=== PATIENT | male | born 1935 | race Caucasian/White ===

== ENCOUNTER 2021-01-21 14:23 | Inpatient (IN) | payer MEDICARE, BC ==
[2021-01-21] MEDS ORDERED: Furosemide 40 MG/4 ML VIAL ONE (14:56)
[2021-01-21 15:10] LABS: #Basophils 0.1 10x3/uL (0.0-0.2); #Eosinphils 0.1 10x3/uL (0.0-0.5); #Monocytes 0.8 10x3/uL (0.0-1.1); #Neutrophils 5.3 10x3/uL (1.5-8.4); %Basophils 0.7 % (0.0-2.0); %Eosinophils 1.4 % (0.0-6.0); %Lymphocytes 14.4 % (18.0-47.0); %Monocytes 10.4 % (0.0-10.0); %Neutrophils 72.5 % (40.0-75.0); Hemoglobin 8.9 g/dL (13.5-17.5); Mean Corpuscular HGB CONC 29.3 g/dL (32.0-36.0); Mean Corpuscular Hemoglobin 22.4 pg (27.0-33.0); Mean Corpuscular Volume 76.6 fl (81.2-95.1); Mean Platelet Volume 10.9 fl (7.4-10.4); Platelet Count 155 10x3/uL (150-450); RBC Distribution Width 14.8 % (11.5-14.5); Red Blood Cell (RBC) Count 3.97 10x6/uL (4.32-5.72); White Blood Cell (WBC) Count 7.2 10x3/uL (3.5-10.5)
[2021-01-21 15:16] LABS: ALT (SGPT) 18 U/L (8-55); AST (SGOT) 21 U/L (5-34); Alkaline Phosphatase 96 U/L (40-110); Anion Gap 15 mmol/L (10-20); BUN (Urea Nitrogen) 53 mg/dL (8.4-25.7); Bilirubin, Total 0.4 mg/dL (0.2-1.2); Calc. Creatinine Clearance 0 mL/min (70-130); Calcium 8.4 mg/dL (7.8-10.44); Carbon Dioxide 26 mmol/L (23-31); Chloride 101 mmol/L (98-107); Globulin 2.7 g/dL (2.4-3.5); Glucose 187 mg/dL (83-110); Potassium 3.7 mmol/L (3.5-5.1); Protein, Total 6.7 g/dL (5.8-8.1); Sodium 138 mmol/L (136-145)
[2021-01-21 16:07] LABS: Platelet Morphology Comment Appears Adequate
[2021-01-21 16:09] LABS: Anisocytosis SLIGHT = 6-15 cells (100X) (0-5/hpf); Elliptocytes SLIGHT = 2-5 cells (100X) (0-1/hpf); Hypochromia SLIGHT = 6-15 cells (100X) (0-5/hpf); Macrocytosis SLIGHT = 6-15 cells (100X) (0-5/hpf); Microcytosis SLIGHT = 6-15 cells (100X) (0-5/hpf); Polychromasia SLIGHT = 2-3 cells (100X) (0-2/hpf); Target Cells SLIGHT = 2-5 cells (100X) (0-1/hpf)
[2021-01-21 18:01] LABS: Troponin I 0.019 ng/mL (< 0.028)
[2021-01-21] MEDS ORDERED: Dextrose 5% in Water 1,000 ML IV PRN (20:17)
[2021-01-21] MEDS ORDERED: Dextrose 50% Abboject 50 ML SYRINGE SLOW IVP PRN (20:17)
[2021-01-21] MEDS ORDERED: Guaifenesin DM 100-10/5 ML UDCUP PO PRN (20:18)
[2021-01-21] MEDS ORDERED: Zolpidem Tartrate 5 MG TAB PO PRN (20:18)
[2021-01-21] MEDS ORDERED: Senokot S 8.6-50 MG TAB PO PRN (20:18)
[2021-01-21] MEDS ORDERED: Calcium Carbonate 500 MG ChewTAB PO PRN (20:18)
[2021-01-21] MEDS ORDERED: Acetaminophen 325 MG TAB PO PRN (20:18)
[2021-01-21] MEDS ORDERED: Potassium Chloride 20 MEQ TAB PO SCH (20:30)
[2021-01-21 21:11] LABS: Troponin I 0.035 ng/mL (< 0.028)
[2021-01-21] MEDS: Apixaban 2.5 MG TAB PO SCH (21:36)
[2021-01-21] MEDS: Simvastatin 10 MG TAB PO SCH (21:36)
[2021-01-22 04:34] LABS: SARS-CoV-2 PCR by NAA Not Detected (NotDetected)
[2021-01-22 05:29] LABS: #Eosinphils 0.1 10x3/uL (0.0-0.5); #Monocytes 0.7 10x3/uL (0.0-1.1); #Neutrophils 4.8 10x3/uL (1.5-8.4); %Basophils 0.6 % (0.0-2.0); %Eosinophils 1.8 % (0.0-6.0); %Lymphocytes 13.1 % (18.0-47.0); %Neutrophils 73.9 % (40.0-75.0); Hemoglobin 8.4 g/dL (13.5-17.5); Mean Corpuscular HGB CONC 29.6 g/dL (32.0-36.0); Mean Corpuscular Hemoglobin 22.5 pg (27.0-33.0); Mean Corpuscular Volume 75.9 fl (81.2-95.1); Mean Platelet Volume 11.3 fl (7.4-10.4); Platelet Count 141 10x3/uL (150-450); RBC Distribution Width 15.1 % (11.5-14.5); Red Blood Cell (RBC) Count 3.74 10x6/uL (4.32-5.72); White Blood Cell (WBC) Count 6.5 10x3/uL (3.5-10.5)
[2021-01-22 05:41] LABS: Anion Gap 14 mmol/L (10-20); BUN (Urea Nitrogen) 47 mg/dL (8.4-25.7); Calc. Creatinine Clearance 28 mL/min (70-130); Calcium 8.4 mg/dL (7.8-10.44); Carbon Dioxide 27 mmol/L (23-31); Chloride 105 mmol/L (98-107); Iron 15 ug/dL (65-175); Iron Binding Capacity, Total 313 mcg/dL (261-462); Potassium 3.6 mmol/L (3.5-5.1); Sodium 142 mmol/L (136-145)
[2021-01-22 05:44] LABS: Ferritin 18.81 ng/mL (22-322); Thyroid Stimulating Hormone 0.7379 uIU/mL (0.35-4.94)
[2021-01-22 05:51] LABS: Glucose 50 mg/dL (83-110)
[2021-01-22 05:58] LABS: CKMB 1.1 ng/mL (0-6.6)
[2021-01-22] MEDS: Furosemide 40 MG/4 ML VIAL SLOW IVP SCH ×2 (06:27→14:25)
[2021-01-22] MEDS ORDERED: NPH, Human Insulin Isophane 300 UNIT/3 ML VIAL SQ SCH (09:00)
[2021-01-22] MEDS ORDERED: Metoprolol Tartrate 25 MG TAB PO SCH (09:00)
[2021-01-22] MEDS ORDERED: Glimepiride 2 MG TAB PO SCH (09:00)
[2021-01-22] MEDS: Ferrous Sulfate 325 MG TAB PO SCH (09:36)
[2021-01-22] MEDS: Apixaban 2.5 MG TAB PO SCH ×2 (09:36→20:15)
[2021-01-22] MEDS: Alogliptin 6.25 MG TAB PO SCH (09:36)
[2021-01-22] MEDS: Dronedarone HCl 400 MG TAB PO SCH ×2 (09:37→18:54)
[2021-01-22] MEDS: NPH, Human Insulin Isophane 300 UNIT/3 ML VIAL SQ SCH (09:41)
[2021-01-22] MEDS: HumaLOG 300 UNITS/3 ML VIAL SC PRN ×3 (12:06→23:58)
[2021-01-22] MEDS: Simvastatin 10 MG TAB PO SCH (20:15)
[2021-01-23] MEDS ORDERED: Potassium Chloride 20 MEQ TAB PO SCH (00:15)
[2021-01-23] MEDS: Furosemide 40 MG/4 ML VIAL SLOW IVP SCH ×2 (05:46→13:24)
[2021-01-23] MEDS: HumaLOG 300 UNITS/3 ML VIAL SC PRN ×3 (05:49→19:25)
[2021-01-23] MEDS: Dronedarone HCl 400 MG TAB PO SCH ×2 (07:51→18:05)
[2021-01-23] MEDS: Alogliptin 6.25 MG TAB PO SCH (07:52)
[2021-01-23] MEDS: Ferrous Sulfate 325 MG TAB PO SCH (07:52)
[2021-01-23] MEDS: Apixaban 2.5 MG TAB PO SCH (07:53)
[2021-01-23] MEDS: NPH, Human Insulin Isophane 300 UNIT/3 ML VIAL SQ SCH (07:57)
[2021-01-23 11:28] LABS: #Basophils 0.1 10x3/uL (0.0-0.2); #Eosinphils 0.1 10x3/uL (0.0-0.5); #Monocytes 0.7 10x3/uL (0.0-1.1); #Neutrophils 5.1 10x3/uL (1.5-8.4); %Basophils 0.9 % (0.0-2.0); %Eosinophils 1.5 % (0.0-6.0); %Lymphocytes 12.6 % (18.0-47.0); %Monocytes 10.6 % (0.0-10.0); Hemoglobin 8.8 g/dL (13.5-17.5); Mean Corpuscular HGB CONC 28.4 g/dL (32.0-36.0); Mean Corpuscular Hemoglobin 21.8 pg (27.0-33.0); Mean Corpuscular Volume 76.7 fl (81.2-95.1); Mean Platelet Volume 10.3 fl (7.4-10.4); Platelet Count 131 10x3/uL (150-450); RBC Distribution Width 15.1 % (11.5-14.5); Red Blood Cell (RBC) Count 4.04 10x6/uL (4.32-5.72); White Blood Cell (WBC) Count 6.9 10x3/uL (3.5-10.5)
[2021-01-23 11:32] LABS: Anion Gap 15 mmol/L (10-20); BUN (Urea Nitrogen) 47 mg/dL (8.4-25.7); Calc. Creatinine Clearance 28 mL/min (70-130); Calcium 8.6 mg/dL (7.8-10.44); Carbon Dioxide 27 mmol/L (23-31); Chloride 101 mmol/L (98-107); Glucose 182 mg/dL (83-110); Potassium 4.7 mmol/L (3.5-5.1); Sodium 138 mmol/L (136-145)
[2021-01-23] MEDS ORDERED: Communication Order-Pharmacy FS SCH (12:00)
[2021-01-23] MEDS ORDERED: Ascorbic Acid 500 mg Chewable Tablet PO SCH (12:00)
[2021-01-23 12:37] LABS: Hypochromia SLIGHT = 6-15 cells (100X) (0-5/hpf); Polychromasia SLIGHT = 2-3 cells (100X) (0-2/hpf)
[2021-01-23 12:38] LABS: Anisocytosis SLIGHT = 6-15 cells (100X) (0-5/hpf); Microcytosis SLIGHT = 6-15 cells (100X) (0-5/hpf)
[2021-01-23 12:39] LABS: Poikilocytosis SLIGHT = 6-15 cells (100X) (0-5/hpf)
[2021-01-23 12:40] LABS: Platelet Morphology Comment Appears Decreased
[2021-01-23] MEDS ORDERED: Epoetin (ESRD) 10,000 UNITS/ML VIAL SC SCH (16:00)
[2021-01-23] MEDS ORDERED: EPOETIN ALFA-EPBX (ESRD) 10,000 UNIT/ML VIAL SC SCH (16:30)
[2021-01-23] MEDS: Simvastatin 10 MG TAB PO SCH (20:49)
[2021-01-23] MEDS: Acetylcysteine 800 MG/4 ML VIAL PO SCH (20:59)
[2021-01-24] MEDS: HumaLOG 300 UNITS/3 ML VIAL SC PRN ×5 (00:18→20:29)
[2021-01-24] MEDS: Furosemide 40 MG/4 ML VIAL SLOW IVP SCH ×2 (05:44→15:13)
[2021-01-24] MEDS ORDERED: Sodium Chloride 0.9% 1,000 ML IV SCH (06:00)
[2021-01-24] MEDS: Dronedarone HCl 400 MG TAB PO SCH ×2 (08:15→17:28)
[2021-01-24] MEDS: Ascorbic Acid 500 mg Chewable Tablet PO SCH (08:15)
[2021-01-24] MEDS: Ferrous Sulfate 325 MG TAB PO SCH (08:15)
[2021-01-24] MEDS: Acetylcysteine 800 MG/4 ML VIAL PO SCH (08:15)
[2021-01-24] MEDS: Docusate 100 MG CAP PO SCH ×2 (09:39→20:25)
[2021-01-24] MEDS: Polyethylene Glycol 3350 17 GM Packet PO SCH (09:39)
[2021-01-24] MEDS: Simvastatin 10 MG TAB PO SCH (20:25)
[2021-01-24] MEDS: Apixaban 2.5 MG TAB PO SCH (20:25)
[2021-01-25 05:44] LABS: #Eosinphils 0.1 10x3/uL (0.0-0.5); #Monocytes 0.7 10x3/uL (0.0-1.1); #Neutrophils 5.3 10x3/uL (1.5-8.4); %Basophils 0.4 % (0.0-2.0); %Eosinophils 1.3 % (0.0-6.0); %Lymphocytes 12.2 % (18.0-47.0); %Monocytes 10.1 % (0.0-10.0); %Neutrophils 75.7 % (40.0-75.0); Hemoglobin 8.5 g/dL (13.5-17.5); Mean Corpuscular HGB CONC 29.1 g/dL (32.0-36.0); Mean Corpuscular Hemoglobin 22.3 pg (27.0-33.0); Mean Corpuscular Volume 76.4 fl (81.2-95.1); Mean Platelet Volume 11.1 fl (7.4-10.4); Platelet Count 135 10x3/uL (150-450); RBC Distribution Width 15.3 % (11.5-14.5); Red Blood Cell (RBC) Count 3.82 10x6/uL (4.32-5.72)
[2021-01-25] MEDS: Furosemide 40 MG/4 ML VIAL SLOW IVP SCH ×2 (05:48→13:57)
[2021-01-25] MEDS: HumaLOG 300 UNITS/3 ML VIAL SC PRN ×3 (05:52→15:51)
[2021-01-25 05:55] LABS: Anion Gap 15 mmol/L (10-20); BUN (Urea Nitrogen) 49 mg/dL (8.4-25.7); Calc. Creatinine Clearance 29 mL/min (70-130); Calcium 8.7 mg/dL (7.8-10.44); Carbon Dioxide 27 mmol/L (23-31); Chloride 100 mmol/L (98-107); Glucose 170 mg/dL (83-110); Potassium 4.1 mmol/L (3.5-5.1); Sodium 138 mmol/L (136-145)
[2021-01-25] MEDS: Apixaban 2.5 MG TAB PO SCH (07:51)
[2021-01-25] MEDS: Docusate 100 MG CAP PO SCH ×2 (08:28→20:36)
[2021-01-25] MEDS: Dronedarone HCl 400 MG TAB PO SCH ×2 (08:30→17:01)
[2021-01-25] MEDS: Ascorbic Acid 500 mg Chewable Tablet PO SCH (08:31)
[2021-01-25] MEDS: Ferrous Sulfate 325 MG TAB PO SCH (08:31)
[2021-01-25] MEDS: Alogliptin 6.25 MG TAB PO SCH (08:32)
[2021-01-25] MEDS: Polyethylene Glycol 3350 17 GM Packet PO SCH (08:35)
[2021-01-25] MEDS ORDERED: NPH, Human Insulin Isophane 300 UNIT/3 ML VIAL SQ SCH (09:00)
[2021-01-25] MEDS ORDERED: Communication Order-Pharmacy FS SCH (18:30)
[2021-01-25] MEDS: Simvastatin 10 MG TAB PO SCH (20:36)
[2021-01-26 05:55] LABS: Anion Gap 15 mmol/L (10-20); BUN (Urea Nitrogen) 49 mg/dL (8.4-25.7); Calc. Creatinine Clearance 26 mL/min (70-130); Calcium 8.8 mg/dL (7.8-10.44); Carbon Dioxide 28 mmol/L (23-31); Chloride 100 mmol/L (98-107); Glucose 229 mg/dL (83-110); Magnesium 2.3 mg/dL (1.6-2.6); Sodium 139 mmol/L (136-145)
[2021-01-26] MEDS: Dronedarone HCl 400 MG TAB PO SCH ×2 (06:33→17:12)
[2021-01-26] MEDS: Alogliptin 6.25 MG TAB PO SCH (06:33)
[2021-01-26] MEDS: Ascorbic Acid 500 mg Chewable Tablet PO SCH (06:33)
[2021-01-26] MEDS: Ferrous Sulfate 325 MG TAB PO SCH (06:33)
[2021-01-26] MEDS: Sodium Chloride 0.9% 1,000 ML IV SCH (06:34)
[2021-01-26] MEDS ORDERED: Aspirin 81 mg Enteric Coated Tablet PO SCH (07:00)
[2021-01-26] MEDS: Furosemide 40 MG/4 ML VIAL SLOW IVP SCH ×2 (07:26→14:06)
[2021-01-26] MEDS: Polyethylene Glycol 3350 17 GM Packet PO SCH (07:39)
[2021-01-26] MEDS: Aspirin 81 mg Enteric Coated Tablet PO SCH (08:06)
[2021-01-26] MEDS: Docusate 100 MG CAP PO SCH ×2 (09:21→21:10)
[2021-01-26] MEDS: HumaLOG 300 UNITS/3 ML VIAL SC PRN ×2 (13:06→16:16)
[2021-01-26] MEDS ORDERED: Dronedarone HCl 400 MG TAB PO SCH ×2 (18:15→22:00)
[2021-01-26] MEDS: Simvastatin 10 MG TAB PO SCH (21:10)
[2021-01-26] MEDS: Apixaban 2.5 MG TAB PO SCH (21:10)
[2021-01-27] MEDS: HumaLOG 300 UNITS/3 ML VIAL SC PRN ×5 (00:54→21:12)
[2021-01-27] MEDS: Furosemide 40 MG/4 ML VIAL SLOW IVP SCH ×2 (06:33→14:49)
[2021-01-27] MEDS: Sodium Chloride 0.9% 1,000 ML IV SCH (07:43)
[2021-01-27] MEDS: Docusate 100 MG CAP PO SCH ×2 (08:25→21:06)
[2021-01-27] MEDS: Dronedarone HCl 400 MG TAB PO SCH ×2 (08:25→17:33)
[2021-01-27] MEDS: Alogliptin 6.25 MG TAB PO SCH (08:25)
[2021-01-27] MEDS: Apixaban 2.5 MG TAB PO SCH ×2 (08:25→21:06)
[2021-01-27] MEDS: Ferrous Sulfate 325 MG TAB PO SCH (08:25)
[2021-01-27] MEDS: Ascorbic Acid 500 mg Chewable Tablet PO SCH (08:25)
[2021-01-27] MEDS: Polyethylene Glycol 3350 17 GM Packet PO SCH (08:28)
[2021-01-27] MEDS ORDERED: NPH, Human Insulin Isophane 300 UNIT/3 ML VIAL SQ SCH (09:00)
[2021-01-27] MEDS: Simvastatin 10 MG TAB PO SCH (21:06)
[2021-01-28 05:47] VITALS: BMI 23.9
[2021-01-28] MEDS: Sodium Chloride 0.9% 1,000 ML IV SCH (06:10)
[2021-01-28] MEDS: Furosemide 40 MG/4 ML VIAL SLOW IVP SCH ×2 (06:12→16:03)
[2021-01-28] MEDS: Dronedarone HCl 400 MG TAB PO SCH ×2 (06:14→18:58)
[2021-01-28] MEDS: Apixaban 2.5 MG TAB PO SCH (06:14)
[2021-01-28] MEDS ORDERED: NPH, Human Insulin Isophane 300 UNIT/3 ML VIAL SC SCH (08:15)
[2021-01-28] MEDS ORDERED: Midazolam HCl 5 mg/5 ml Vial ONE (08:46)
[2021-01-28] MEDS ORDERED: Fentanyl 250 MCG/5 ML VIAL ONE (08:47)
[2021-01-28] MEDS: Ferrous Sulfate 325 MG TAB PO SCH (09:13)
[2021-01-28] MEDS: Alogliptin 6.25 MG TAB PO SCH (09:14)
[2021-01-28] MEDS: Ascorbic Acid 500 mg Chewable Tablet PO SCH (09:14)
[2021-01-28] MEDS: Polyethylene Glycol 3350 17 GM Packet PO SCH (09:14)
[2021-01-28] MEDS: Docusate 100 MG CAP PO SCH (09:14)
[2021-01-28] MEDS: Aspirin 81 mg Enteric Coated Tablet PO SCH (09:14)
[2021-01-28] MEDS ORDERED: Adenosine 6 MG/2 ML VIAL ONE ×3 (09:23→09:28)
[2021-01-28 11:55] LABS: Anion Gap 12 mmol/L (10-20); BUN (Urea Nitrogen) 48 mg/dL (8.4-25.7); Calc. Creatinine Clearance 27 mL/min (70-130); Calcium 8.7 mg/dL (7.8-10.44); Carbon Dioxide 29 mmol/L (23-31); Chloride 102 mmol/L (98-107); Glucose 197 mg/dL (83-110); Potassium 4.3 mmol/L (3.5-5.1); Sodium 139 mmol/L (136-145)
[2021-01-28 13:18] VITALS: BP 113/58; TEMP 97.7
[2021-01-29] MEDS ORDERED: NPH, Human Insulin Isophane 300 UNIT/3 ML VIAL SC SCH (09:00)
== END 2021-01-28 17:08 | disposition home health service (06) | DRG 291 ==
LOC: CSHERS 14:23 → OBSVTOIN 17:37 → CSHTELE 17:37
PROVIDERS: ADMIT Internal Medicine; ATTEND Internal Medicine
PROC: 5A2204Z Restoration of Cardiac Rhythm, Single (ICD-10-PCS; principal; 2021-01-28)
PROC: B24BZZ4 Ultrasonography of Heart with Aorta, Transesophageal (ICD-10-PCS; 2021-01-28)
DX: I13.0 Hypertensive heart and chronic kidney disease with heart failure and stage 1 through stage 4 chronic kidney disease, or unspecified chronic kidney disease (principal); I50.43 Acute on chronic combined systolic (congestive) and diastolic (congestive) heart failure; N18.4 Chronic kidney disease, stage 4 (severe); I48.92 Unspecified atrial flutter; E11.22 Type 2 diabetes mellitus with diabetic chronic kidney disease; Z66 Do not resuscitate; Z20.822 Contact with and (suspected) exposure to COVID-19; E11.65 Type 2 diabetes mellitus with hyperglycemia; E78.5 Hyperlipidemia, unspecified; I25.10 Atherosclerotic heart disease of native coronary artery without angina pectoris; D63.8 Anemia in other chronic diseases classified elsewhere; M19.90 Unspecified osteoarthritis, unspecified site; I48.0 Paroxysmal atrial fibrillation; R53.81 Other malaise; D50.9 Iron deficiency anemia, unspecified; I49.5 Sick sinus syndrome; Z79.01 Long term (current) use of anticoagulants; Z79.82 Long term (current) use of aspirin; Z95.1 Presence of aortocoronary bypass graft; Z79.4 Long term (current) use of insulin; Z98.41 Cataract extraction status, right eye; Z87.891 Personal history of nicotine dependence; Z79.899 Other long term (current) drug therapy
CPT/HCPCS: 36415; 36416; 71045; 80048; 80053; 82553; 82607; 82728; 82746; 83540; 83550; 83735; 83880; 84443; 84484; 85025; 87635; 92960; 93005; 93010; 93306; 93312; 96374; 99152; 99153; G0378; J0153; J1815; J1940; J2250; J3010; J3475; J7050; Q5105; U0003; U0005

== ENCOUNTER 2021-02-06 22:35 | Inpatient (IN) | payer MEDICARE, BC ==
[2021-02-06] MEDS ORDERED: Dextrose 50% Abboject 50 ML SYRINGE SLOW IVP PRN (22:41)
[2021-02-06] MEDS ORDERED: Senokot S 8.6-50 MG TAB PO PRN (22:41)
[2021-02-06] MEDS ORDERED: Acetaminophen 325 MG TAB PO PRN (22:41)
[2021-02-06] MEDS ORDERED: Dextrose 5% in Water 1,000 ML IV PRN (22:41)
[2021-02-06] MEDS ORDERED: Calcium Carbonate 500 MG ChewTAB PO PRN (22:41)
[2021-02-06 22:45] VITALS: BMI 24.0
[2021-02-06] MEDS ORDERED: Apixaban 2.5 MG TAB PO SCH (23:00)
[2021-02-07 00:04] LABS: CKMB 1.3 ng/mL (0-6.6)
[2021-02-07] MEDS: Furosemide 20 MG/2 ML VIAL SLOW IVP SCH ×2 (05:45→14:12)
[2021-02-07] MEDS ORDERED: Furosemide 40 MG/4 ML VIAL SLOW IVP SCH (06:00)
[2021-02-07 07:21] LABS: #Eosinphils 0.1 10x3/uL (0.0-0.5); #Monocytes 0.8 10x3/uL (0.0-1.1); #Neutrophils 3.5 10x3/uL (1.5-8.4); %Basophils 0.4 % (0.0-2.0); %Eosinophils 1.4 % (0.0-6.0); %Lymphocytes 10.3 % (18.0-47.0); %Monocytes 15.5 % (0.0-10.0); %Neutrophils 72.2 % (40.0-75.0); Mean Corpuscular Hemoglobin 22.2 pg (27.0-33.0); Mean Corpuscular Volume 79.3 fl (81.2-95.1); Mean Platelet Volume 10.6 fl (7.4-10.4); Platelet Count 156 10x3/uL (150-450); RBC Distribution Width 18.6 % (11.5-14.5); Red Blood Cell (RBC) Count 4.05 10x6/uL (4.32-5.72); White Blood Cell (WBC) Count 4.8 10x3/uL (3.5-10.5)
[2021-02-07 07:46] LABS: Anion Gap 13 mmol/L (10-20); BUN (Urea Nitrogen) 58 mg/dL (8.4-25.7); CRP (Inflammatory) 2.15 mg/dL (= or < 0.5); Calc. Creatinine Clearance 25 mL/min (70-130); Calcium 8.5 mg/dL (7.8-10.44); Carbon Dioxide 27 mmol/L (23-31); Chloride 104 mmol/L (98-107); Glucose 236 mg/dL (83-110); Magnesium 2.4 mg/dL (1.6-2.6); Potassium 4.6 mmol/L (3.5-5.1); Sodium 139 mmol/L (136-145)
[2021-02-07 07:57] LABS: CKMB 0.9 ng/mL (0-6.6)
[2021-02-07] MEDS ORDERED: FLU VACC QS2020-21(65YR UP)/PF 240 MCG/0.7 ML SYRINGE IM ONE (09:00)
[2021-02-07 09:10] LABS: Anisocytosis SLIGHT = 6-15 cells (100X) (0-5/hpf); Elliptocytes SLIGHT = 2-5 cells (100X) (0-1/hpf); Polychromasia SLIGHT = 2-3 cells (100X) (0-2/hpf)
[2021-02-07 09:11] LABS: Hypochromia MODERATE=16-30 cells (100X) (0-5/hpf); Platelet Morphology Comment Appears Adequate
[2021-02-07] MEDS: Ferrous Sulfate 325 MG TAB PO SCH (09:18)
[2021-02-07] MEDS: Apixaban 2.5 MG TAB PO SCH ×2 (09:23→20:24)
[2021-02-07] MEDS: Alogliptin 6.25 MG TAB PO SCH (09:23)
[2021-02-07] MEDS: NPH, Human Insulin Isophane 300 UNIT/3 ML VIAL SQ SCH (09:24)
[2021-02-07] MEDS: Dronedarone HCl 400 MG TAB PO SCH ×2 (09:24→20:24)
[2021-02-07] MEDS: Cholecalciferol 1,000 UNITS (25 MCG) TAB PO SCH (09:24)
[2021-02-07] MEDS: Ascorbic Acid 500 mg Chewable Tablet PO SCH (09:24)
[2021-02-07] MEDS: Zinc Gluconate 50 MG TAB PO SCH (09:24)
[2021-02-07] MEDS: Magnesium Oxide 400 MG TAB PO SCH (09:24)
[2021-02-07] MEDS: Glimepiride 2 MG TAB PO SCH (09:27)
[2021-02-07 11:14] LABS: Ferritin 36.64 ng/mL (22-322); Thyroid Stimulating Hormone 0.7125 uIU/mL (0.35-4.94)
[2021-02-07] MEDS: Simvastatin 10 MG TAB PO SCH (16:31)
[2021-02-07] MEDS: HumaLOG 300 UNITS/3 ML VIAL SC PRN (18:03)
[2021-02-08] MEDS: Zolpidem Tartrate 5 MG TAB PO PRN (00:14)
[2021-02-08 07:06] LABS: #Eosinphils 0.1 10x3/uL (0.0-0.5); #Monocytes 0.9 10x3/uL (0.0-1.1); #Neutrophils 3.4 10x3/uL (1.5-8.4); %Basophils 0.4 % (0.0-2.0); %Eosinophils 1.2 % (0.0-6.0); %Lymphocytes 13.1 % (18.0-47.0); %Monocytes 18.2 % (0.0-10.0); %Neutrophils 66.7 % (40.0-75.0); Hemoglobin 8.8 g/dL (13.5-17.5); Mean Corpuscular HGB CONC 28.3 g/dL (32.0-36.0); Mean Corpuscular Hemoglobin 22.5 pg (27.0-33.0); Mean Corpuscular Volume 79.5 fl (81.2-95.1); Mean Platelet Volume 10.4 fl (7.4-10.4); Platelet Count 134 10x3/uL (150-450); RBC Distribution Width 18.4 % (11.5-14.5); Red Blood Cell (RBC) Count 3.91 10x6/uL (4.32-5.72); White Blood Cell (WBC) Count 5.1 10x3/uL (3.5-10.5)
[2021-02-08 07:23] LABS: Anion Gap 14 mmol/L (10-20); BUN (Urea Nitrogen) 54 mg/dL (8.4-25.7); Calc. Creatinine Clearance 26 mL/min (70-130); Calcium 8.2 mg/dL (7.8-10.44); Carbon Dioxide 25 mmol/L (23-31); Chloride 103 mmol/L (98-107); Glucose 100 mg/dL (83-110); Magnesium 2.4 mg/dL (1.6-2.6); Potassium 4.3 mmol/L (3.5-5.1); Sodium 138 mmol/L (136-145)
[2021-02-08] MEDS: Furosemide 20 MG/2 ML VIAL SLOW IVP SCH (09:42)
[2021-02-08] MEDS: Alogliptin 6.25 MG TAB PO SCH (09:42)
[2021-02-08] MEDS: Dronedarone HCl 400 MG TAB PO SCH ×2 (09:42→21:01)
[2021-02-08] MEDS: Apixaban 2.5 MG TAB PO SCH ×2 (09:42→21:01)
[2021-02-08] MEDS: Dexamethasone 20 MG/5 ML VIAL SLOW IVP SCH (09:42)
[2021-02-08] MEDS: Ascorbic Acid 500 mg Chewable Tablet PO SCH (09:42)
[2021-02-08] MEDS: Magnesium Oxide 400 MG TAB PO SCH (09:42)
[2021-02-08] MEDS: Ferrous Sulfate 325 MG TAB PO SCH (09:42)
[2021-02-08] MEDS: Glimepiride 2 MG TAB PO SCH (09:42)
[2021-02-08] MEDS: Cholecalciferol 1,000 UNITS (25 MCG) TAB PO SCH (09:42)
[2021-02-08] MEDS: NPH, Human Insulin Isophane 300 UNIT/3 ML VIAL SQ SCH (09:43)
[2021-02-08] MEDS: Zinc Gluconate 50 MG TAB PO SCH (09:43)
[2021-02-08] MEDS ORDERED: Furosemide 40 MG/4 ML VIAL SLOW IVP SCH (14:00)
[2021-02-08] MEDS: Furosemide 40 MG/4 ML VIAL SLOW IVP SCH (15:38)
[2021-02-08] MEDS: Simvastatin 10 MG TAB PO SCH (16:22)
[2021-02-08] MEDS: Guaifenesin DM 100-10/5 ML UDCUP PO PRN (17:05)
[2021-02-08] MEDS: HumaLOG 300 UNITS/3 ML VIAL SC PRN (17:20)
[2021-02-09] MEDS: HumaLOG 300 UNITS/3 ML VIAL SC PRN ×3 (01:02→23:37)
[2021-02-09] MEDS: Zolpidem Tartrate 5 MG TAB PO PRN ×2 (01:05→23:37)
[2021-02-09 05:57] LABS: Anion Gap 15 mmol/L (10-20); BUN (Urea Nitrogen) 53 mg/dL (8.4-25.7); Calc. Creatinine Clearance 27 mL/min (70-130); Calcium 8.3 mg/dL (7.8-10.44); Carbon Dioxide 24 mmol/L (23-31); Chloride 103 mmol/L (98-107); Glucose 264 mg/dL (83-110); Magnesium 2.4 mg/dL (1.6-2.6); Potassium 4.6 mmol/L (3.5-5.1); Sodium 137 mmol/L (136-145)
[2021-02-09 06:00] LABS: #Monocytes 0.3 10x3/uL (0.0-1.1); #Neutrophils 2.3 10x3/uL (1.5-8.4); %Lymphocytes 14.1 % (18.0-47.0); %Monocytes 11.2 % (0.0-10.0); %Neutrophils 74.4 % (40.0-75.0); Hemoglobin 8.8 g/dL (13.5-17.5); Mean Corpuscular HGB CONC 28.2 g/dL (32.0-36.0); Mean Corpuscular Hemoglobin 22.3 pg (27.0-33.0); Mean Platelet Volume 11.1 fl (7.4-10.4); Platelet Count 135 10x3/uL (150-450); RBC Distribution Width 18.4 % (11.5-14.5); Red Blood Cell (RBC) Count 3.95 10x6/uL (4.32-5.72)
[2021-02-09] MEDS: Furosemide 40 MG/4 ML VIAL SLOW IVP SCH ×2 (06:21→13:17)
[2021-02-09] MEDS: Cholecalciferol 1,000 UNITS (25 MCG) TAB PO SCH (08:27)
[2021-02-09] MEDS: Glimepiride 2 MG TAB PO SCH (08:27)
[2021-02-09] MEDS: Ferrous Sulfate 325 MG TAB PO SCH (08:27)
[2021-02-09] MEDS: Alogliptin 6.25 MG TAB PO SCH (08:27)
[2021-02-09] MEDS: Ascorbic Acid 500 mg Chewable Tablet PO SCH (08:27)
[2021-02-09] MEDS: Dexamethasone 20 MG/5 ML VIAL SLOW IVP SCH (08:27)
[2021-02-09] MEDS: Zinc Gluconate 50 MG TAB PO SCH (08:28)
[2021-02-09] MEDS: Apixaban 2.5 MG TAB PO SCH ×2 (08:28→20:01)
[2021-02-09] MEDS: Magnesium Oxide 400 MG TAB PO SCH (08:28)
[2021-02-09] MEDS: Dronedarone HCl 400 MG TAB PO SCH ×2 (08:28→20:01)
[2021-02-09] MEDS: NPH, Human Insulin Isophane 300 UNIT/3 ML VIAL SQ SCH (08:28)
[2021-02-09] MEDS ORDERED: Aspirin 81 mg Enteric Coated Tablet PO SCH (09:00)
[2021-02-09] MEDS: Simvastatin 10 MG TAB PO SCH (16:12)
[2021-02-09] MEDS: Guaifenesin DM 100-10/5 ML UDCUP PO PRN (20:01)
[2021-02-10] MEDS: Furosemide 40 MG/4 ML VIAL SLOW IVP SCH ×2 (04:38→12:40)
[2021-02-10] MEDS: HumaLOG 300 UNITS/3 ML VIAL SC PRN (04:38)
[2021-02-10 04:49] LABS: #Monocytes 0.5 10x3/uL (0.0-1.1); #Neutrophils 5.6 10x3/uL (1.5-8.4); %Lymphocytes 6.5 % (18.0-47.0); %Monocytes 7.8 % (0.0-10.0); %Neutrophils 85.2 % (40.0-75.0); Hemoglobin 9.5 g/dL (13.5-17.5); Mean Corpuscular HGB CONC 28.7 g/dL (32.0-36.0); Mean Corpuscular Hemoglobin 22.6 pg (27.0-33.0); Mean Corpuscular Volume 78.8 fl (81.2-95.1); Mean Platelet Volume 10.5 fl (7.4-10.4); Platelet Count 138 10x3/uL (150-450); RBC Distribution Width 18.6 % (11.5-14.5); White Blood Cell (WBC) Count 6.5 10x3/uL (3.5-10.5)
[2021-02-10 04:51] LABS: Anion Gap 15 mmol/L (10-20); BUN (Urea Nitrogen) 59 mg/dL (8.4-25.7); Calc. Creatinine Clearance 26 mL/min (70-130); Calcium 8.2 mg/dL (7.8-10.44); Carbon Dioxide 24 mmol/L (23-31); Chloride 100 mmol/L (98-107); Glucose 304 mg/dL (83-110); Magnesium 2.4 mg/dL (1.6-2.6); Potassium 4.5 mmol/L (3.5-5.1); Sodium 134 mmol/L (136-145)
[2021-02-10] MEDS: Zinc Gluconate 50 MG TAB PO SCH (09:23)
[2021-02-10] MEDS: Cholecalciferol 1,000 UNITS (25 MCG) TAB PO SCH (09:23)
[2021-02-10] MEDS: Ferrous Sulfate 325 MG TAB PO SCH (09:23)
[2021-02-10] MEDS: Apixaban 2.5 MG TAB PO SCH (09:23)
[2021-02-10] MEDS: Alogliptin 6.25 MG TAB PO SCH (09:23)
[2021-02-10] MEDS: NPH, Human Insulin Isophane 300 UNIT/3 ML VIAL SQ SCH (09:23)
[2021-02-10] MEDS: Dexamethasone 20 MG/5 ML VIAL SLOW IVP SCH (09:23)
[2021-02-10] MEDS: Magnesium Oxide 400 MG TAB PO SCH (09:23)
[2021-02-10] MEDS: Ascorbic Acid 500 mg Chewable Tablet PO SCH (09:24)
[2021-02-10] MEDS: Dronedarone HCl 400 MG TAB PO SCH (09:24)
[2021-02-10] MEDS: Glimepiride 2 MG TAB PO SCH (09:24)
[2021-02-10] MEDS: Simvastatin 10 MG TAB PO SCH (16:11)
[2021-02-10 16:22] VITALS: BP 107/69; TEMP 97.5
== END 2021-02-10 17:03 | disposition home health service (06) | DRG 291 ==
LOC: CSHTELE 22:35
PROVIDERS: ADMIT Student in an Organized Health Care Education/Training Program; ATTEND Family Medicine
PROC: 8E0ZXY6 Isolation (ICD-10-PCS; principal; 2021-02-06)
DX: I13.0 Hypertensive heart and chronic kidney disease with heart failure and stage 1 through stage 4 chronic kidney disease, or unspecified chronic kidney disease (principal); U07.1 COVID-19; I50.43 Acute on chronic combined systolic (congestive) and diastolic (congestive) heart failure; J12.82 Pneumonia due to coronavirus disease 2019; N18.4 Chronic kidney disease, stage 4 (severe); I48.11 Longstanding persistent atrial fibrillation; E78.5 Hyperlipidemia, unspecified; Z66 Do not resuscitate; I25.10 Atherosclerotic heart disease of native coronary artery without angina pectoris; Z95.1 Presence of aortocoronary bypass graft; R09.02 Hypoxemia; D50.9 Iron deficiency anemia, unspecified; E11.22 Type 2 diabetes mellitus with diabetic chronic kidney disease; E11.65 Type 2 diabetes mellitus with hyperglycemia; D63.1 Anemia in chronic kidney disease; Z79.01 Long term (current) use of anticoagulants; Z79.82 Long term (current) use of aspirin; Z79.4 Long term (current) use of insulin; Z79.899 Other long term (current) drug therapy; Z95.810 Presence of automatic (implantable) cardiac defibrillator
CPT/HCPCS: 36415; 36416; 71045; 80048; 82553; 82728; 83735; 83880; 84443; 84484; 85025; 85379; 86140; 93005; 93010; 94760; J1100; J1815; J1940